=== PATIENT | female | born 1980 | race Caucasian/White ===

== ENCOUNTER 2025-04-01 08:18 | Emergency (ER) | payer BC, MEDICAID, SELFPAY ==
[2025-04-01 08:23] VITALS: BP 150/78; PULSE 85; RESP 17; TEMP 36.4; O2SAT 98; BMI 32.1
--- OUTSIDE RECORDS SUMMARY | 2025-04-01 08:25 | XMS_ITS | Encounter Summary ---
Author Organization [facility] Address [address] [place] [address] Care Team Providers Care Steeping Press Tender Name Role Phone Kary Lawson MD Primary Care Provider [phone] Encounter Details Date Type Department Care Team (Late st Contact Info) Description 10/05/[address] [facility] Support Serv. ([facility]t Cardiology-[facility]) [address] 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
--- OUTSIDE RECORDS SUMMARY | 2025-04-01 08:26 | XMS_ITS | Encounter Summary ---
Author Organization [facility] Address 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
--- OUTSIDE RECORDS SUMMARY | 2025-04-01 08:26 | XMS_ITS | Clinical Summary ---
Author Organization [facility] Address [address] Benitez: Epic Prelude ADT [place] [address] Care Team Providers Care Nca Certified Concierge Name Role Phone Unavailable Primary Care Provider Unavailabl e Allergies Active Allergy Reactions Criticality Noted Date Comments Cephalexin Rash Low 10/18/2015 Nitrofurantoin Monohyd/M-Cryst Rash Low 10/17 Medications No known medications Active Problems Problem Noted Date Diagnosed Date Lesion of right upper eyelid 01/26/2024 Social History Tobacco Use Types Packs/Day Years Used Date Smoking Tobacco: Former Cigarettes Smokeless Tobacco: Never Tobacco Cessation:Counseling Given: Not Answered Alcohol Use Standard Drinks/Week Comments No 0 (1 standard drink = 0.6 oz pur e alcohol) Feeling Safe Answer Date Recorded Are you in a relationship wi th someone who hurts you emotionally and/or physically? 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 Gender Identity Not on file Sexual Orientation Not on file Last Filed Vital Signs Vital Sign Reading Time Taken Comments Blood Pressure 123/105 01/26/2024 2:15 PM CDT Pulse 71 01/26/2024 2:00 PM CDT Temperature 36.7 C (98 F) 01/26/2024 2:15 PM CDT Respiratory Rate 20 01/26/2024 2:00 PM CDT Oxygen Saturation 99% 01/26/2024 2:15 PM CDT Inhaled Oxygen Concentration - - Weight 66.8 kg (147 lb 3.2 oz) 01/26/2024 12:16 PM CDT Height 154.9 cm (5' 1 ) 01/26/2024 12:16 PM CDT Body Mass Index 27.81 01/26/2024 12:16 PM CDT Plan of Treatment Health Maintenance Due Date Last Done Comments DTAP/TDAP/TD VACCINES (1 - Tdap) 2000 HEPATITIS B VACCINES (1 of 3 - 19+ 3-dose series) 05/07 HPV/Cotest (21-29) 2002 HPV VACCINES (1 - 3-dose SCDM series) 2008 CERVICAL CANCER SCREENING 2011 HPV/Cotest (30-65) 2011 PAP SMEAR 2011 BREAST CANCER SCREENING 2021 INFLUENZA VACCINE (#1) [address] [place] [address] [place] [address]
--- OUTSIDE RECORDS SUMMARY | 2025-04-01 08:26 | XMS_ITS | Encounter Summary ---
Author Organization [facility] Address [address] [place] [address] Care Team Providers Care Drawing Checker Name Role Phone Kary Lawson MD Primary Care Provider [phone] Encounter Details Date Type Department Care Team (Latest Contact Info) Description 02/10/2003 Outpatient Historical [facility] PATIENT IN A BED Rylie Knight MD [address] [facility] [address] [place] [address] Vilma Lyn MD [address] [place] [address] [address] [place] [address] THRT NATALIE LABOR-ANTEPART (Primary Dx) Social History Tobacco Use Types Packs/Day Years Used Date Smoking Tobacco: Never Assessed Comments Unknown Sex and Gender Information Value Date Recorded Sex Assigned at Not on file 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
--- OUTSIDE RECORDS SUMMARY | 2025-04-01 08:26 | XMS_ITS | Patient Health Record ---
Author Organization [facility] Address [address] [place] [address] Support Name Relationship Address Phone MILANLILLIAM Emergency Contact [address] [place], [place] [phone] ZONIA HUGGINS Guarantor Unknown [phone] Reason For Referral No Information Plan Of Treatment No Information Insurance Providers Payer Name Payer Address Payer Phone Subscriber Number Group Number Insured Name Patient Relationship to Insured Coverage Start Date Coverage End Date [facility] [address] [place] [address] [phone] [id number] ZONIA ZAZUETA Self - patient is the insured 2015 6
--- OUTSIDE RECORDS SUMMARY | 2025-04-01 08:26 | XMS_ITS | Encounter Summary ---
Author Organization [facility] Address 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 Gender Identity Not on file Sexual Orientation Not on file documented as of this encounter Plan of Treatment Not on file documented as of this encounter Procedures Procedure Name Priority Date/Time Associated Diagnosis Comments TROPONIN (W/REFLEX CKMB/CK) Routine 10/05/2004 10:35 PM CDT CBC WITH DIFFERENTIAL Routine 10/05/2004 10:35 PM CDT CBC WITH DIFFERENTIAL Routine 10/05/2004 10:35 PM CDT COMPREHENSIVE METABOLIC PANEL Routine 10/05/2004 10:35 PM CDT documented in this encounter Results * (ABNORMAL) CBC WITH DIFFERENTIAL (10/05/2004 10:35 PM CDT) NEUTROPHIL ABSOLUTE 6.36 1.90 - 7.00 K/uL INTERFACE SYSTEM LYMPHOCYTE ABSOLUTE 2.65 0.70 - 4.50 K/uL INTERFACE SYSTEM MONOCYTE ABSOLUTE 1.06 0.10 - 1.30 K/uL INTERFACE SYSTEM EOSINOPHIL ABSOLUTE 0.32 0.00 - 0.70 K/uL INTERFACE SYSTEM BASOPHILS ABSOLUTE 0.11 0.00 - 0.20 K/uL INTERFACE SYSTEM NEUTROPHILS, SEG 59 45 - 70 % INT ERFACE SYSTEM BANDS 1 0 - 5 % INTERFACE SYSTEM LYMPHOCYTES 24 16 - 45 % INTERFAC E SYSTEM MONOCYTES 10 3 - 13 % INTERFACE SYSTEM EOSINOPHILS 3 0 - 7 % INTERFAC E SYSTEM BASOPHILS 1 0 - 2 % INTERFACE SYSTEM MYELOCYTES 1(H) <=0 % INTERFACE SYSTEM ATYPICAL LYMPHOCYTE 1 0 - 5 % INTERFACE SYSTEM PLATELET EST. Normal Normal INTERF ALAINA SYSTEM RBC MORPHOLOGY Normal Normal INTER FACE SYSTEM 10/05/2004 10:3 5 PM CDT Kevin Avitia MD HEMATOLOGY ORDERABLES Final Result Performing Organization Address [facility] de Phone Number INTERFACE SYSTEM Refer to clinic/hospital department * (ABNORMAL) CBC WITH DIFFERENTIAL (10/05/2004 10:35 PM CDT) WBC 10.6(H) 4.0 - 9.8 K/uL INTERFACE SYSTEM RBC 4.04 3.90 - 4.90 M/uL INTERFACE SYSTEM HEMOGLOBIN 12.4 11.8 - 14.8 g/dL INTERFACE SYSTEM HEMATOCRIT 35.3(L) 35.5 - 44.0 % INTERFACE SYSTEM MCV 87.4 82.0 - 99.0 fL INTERFACE SYSTEM MCH 30.7 27.2 - 32.6 pg INTERFACE SYSTEM MCHC 35.1 31.5 - 35.5 % INTERFACE SYSTEM RDW 12.4 11.5 - 14.5 % INTERFACE SYSTEM RDW-STDEV 39.7 37.1 - 48.7 fL INTERFACE SYSTEM PLATELETS 252 140 - 350 K/uL INTERFACE SYSTEM MPV 10.7 9.3 - 12.4 fL INTERFACE SYSTEM 10/05/2004 10:3 5 PM CDT Kevin Avitia MD HEMATOLOGY ORDERABLES Final Result Performing Organization Address City/[facility] Co de Phone Number INTERFACE SYSTEM Refer to clinic/hospital department * TROPONIN (W/REFLEX CKMB/CK) (10/05/2004 10:35 PM CDT) TROPONIN T <0.01 <=0.03 ng/mL INTERFACE SYSTEM TROPONIN T INTERP Negative INTERFACE SYSTEM 10/05/2004 10:3 5 PM CDT Kevin Avitia MD CHEMISTRY ORDERABLES F inal Result Performing Organization Address City/[facility] Co de Phone Number INTERFACE SYSTEM Refer to clinic/hospital department * (ABNORMAL) COMPREHENSIVE METABOLIC PANEL (10/05/2004 10:35 PM CDT) GLUCOSE 89 65 - 109 mg/dL INTERFACE SYSTEM CREATININE 0.6 0.4 - 1.2 mg/dL INTERFACE SYSTEM CALCIUM 8.8 8.6 - 10.2 mg/dL INTERFACE SYSTEM AST 18 12 - 32 U/L INTERFACE SYSTEM ALKALINE PHOSPHATASE 94 35 - 104 U/L INTERFACE SYSTEM BUN 14 6 - 20 mg/dL INTERFACE SYSTEM BILIRUBIN TOTAL 0.2 0.2 - 1.0 mg/dL INTERFACE SYSTEM ALBUMIN 3.7 3.4 - 4.8 g/dL INTERFACE SYSTEM TOTAL PROTEIN 6.7 6.3 - 8.6 g/dL INTERFACE SYSTEM ALT 12 0 - 31 U/L INTERFACE SYSTEM SODIUM 141 135 - 145 mmol/L INTERFACE SYSTEM POTASSIUM 3.9 3.5 - 4.9 mmol/L INTERFACE SYSTEM CHLORIDE 109(H) 96 - 108 mmol/L INTERFACE SYSTEM CO2 24 22 - 30 mmol/L INTERFACE SYSTEM 10/05/2004 10:3 5 PM CDT Kevin Avitia MD CHEMISTRY ORDERABLES F inal Result Performing Organization Address City/[facility] Co de Phone Number INTERFACE SYSTEM Refer to clinic/hospital department documented in this encounter Visit Diagnoses Diagnosis Other chest pain- Primary documented in this encounter Care Teams Mineral Resources Inspector Relationship Specialty Start Date End Date Kary Lawson MD [address] [place] [address] PCP - General 08/31/04 10/13/18 documented as of this encounter
--- OUTSIDE RECORDS SUMMARY | 2025-04-01 08:26 | XMS_ITS | Encounter Summary ---
Author Organization [facility] Address [address] [place] [address] Care Team Providers Care Cuff Stitcher Name Role Phone Kary Lawson MD Primary Care Provider [phone] Encounter Details Date Type Department Care Team (Late st Contact Info) Description 08/31/2004 Emergency [facility] Urvashi Sebastian, DO [address] [facility] [address] [place] [phone] Er, Authorized P NO ADDRESS ON FILE URIN TRACT INFECTION NOS (Primary Dx) Social History Tobacco Use Types Packs/Day Years Used Date Smoking Tobacco: Never Assessed Comments Unknown Sex and Gender Information Value Date Recorded Sex Assigned at Not on file 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 Gender Identity Not on file Sexual Orientation Not on file documented as of this encounter Plan of Treatment Not on file documented as of this encounter Procedures Procedure Name Priority Date/Time Associated Diagnosis Comments PT AND APTT Routine 08/31/2004 11:43 PM CDT CBC WITH DIFFERENTIAL Routine 08/31/2004 11:43 PM CDT CBC WITH DIFFERENTIAL Routine 08/31/2004 11:43 PM CDT URINALYSIS WITH MICROSCOPIC Routine 08/31/2004 11:43 PM CDT D-DIMER Routine 08/31/2004 11:43 PM CDT HCG QUANTITATIVE, BLOOD Routine 08/31/2004 11:43 PM CDT LIPASE Routine 08/31/2004 11:43 PM CDT AMYLASE Routine 08/31/2004 11:43 PM CDT COMPREHENSIVE METABOLIC PANEL Routine 08/31/2004 11:43 PM CDT documented in this encounter Results * (ABNORMAL) URINALYSIS WITH MICROSCOPIC (08/31/2004 11:43 PM CDT) COLOR UA Yellow INTERFACE SYSTEM CLARITY UA Clear Clear INTERFACE SYSTEM SPECIFIC GRAVITY UA 1.005 1.001 - 1.035 INTERFACE SYSTEM PH UA 6.5 5.0 - 8.0 INTERFACE SYSTEM LEUKOCYTE ESTERASE UA 2+(A) Negative INTERFACE SYSTEM NITRITE UA Negative Negative INTERFACE SYSTEM PROTEIN UA Negative Negative INTERFACE SYSTEM GLUCOSE UA Negative Negative INTERFACE SYSTEM KETONES UA Negative Negative INTERFACE SYSTEM UROBILINOGEN UA <1 <1 EU INTE RFACE SYSTEM BILIRUBIN UA Negative Negative INTERFA CE SYSTEM BLOOD UA Negative Negative INTERFACE SYSTEM WBC UA 14(H) 0 - 5 /HPF INTERFACE SYSTEM RBC UA <1 0 - 4 /HPF INTERFACE SYSTEM BACTERIA UA 1+(A) None Seen /HPF INTERFACE SYSTEM EPITHELIAL CELLS, URINE 0-2 /HPF INTERFACE SYSTEM 08/31/2004 11:4 3 PM CDT us Sebastian Landin DO URINE ORDERABLES Final Resul t INTERFACE SYSTEM Refer to clinic/hospital department * HCG QUANTITATIVE, BLOOD (08/31/2004 11:43 PM CDT) HCG QUANT, BLOOD <5 0 - 5 mIU/mL INTERFACE SYSTEM Comment: Result of 5 - 25 mIU/mL is indeterminant for , repeat of test recommemded in 48 hours. Reference Range: Gestational Age: 3 Weeks 5.8 - 71.2 mIU/mL 4 Weeks 9.5 - 750 mIU/mL 5 Weeks 217 - 7138 mIU/mL 6 Weeks 158 - 31,795 mIU/mL 7 Weeks 3697 - 163,563 mIU/mL 8 Weeks 32,065 - 149,571 mIU/mL 9 Weeks 63,803 - 151,410 mIU/mL 10 Weeks 46,509 - 186,977 mIU/mL 12 Weeks 27,832 - 210,612 mIU/mL 14 Weeks 13,950 - 62,530 mIU/mL 15 Weeks 12,039 - 70,971 mIU/mL 16 Weeks 9040 - 56,451 mIU/mL 17 Weeks 8175 - 55,868 mIU/mL 18 Weeks 8099 - 58,176 mIU/mL Heterophile antibodies and other interfering substances in the serum of some patients may cause a false-positive result in this assay. Before making a diagnosis of malignancy or ectopic ,the result of thi s test should be confirmed with a urine HCG test and correlated with other clinical evidence. Results called to laurent at 09/01/2004 12:39 AM and read back verified. 08/31/2004 11:4 3 PM CDT Sebastian Fixit [employer] DO CHEMISTRY ORDERABLES Final R esult Performing Organization Address City/State/[facility] Co de Phone Number INTERFACE SYSTEM Refer to clinic/hospital department * (ABNORMAL) CBC WITH DIFFERENTIAL (08/31/2004 11:43 PM CDT) NEUTROPHILS 58 45 - 70 % INTERFAC E SYSTEM LYMPHOCYTES 29 16 - 45 % INTERFAC E SYSTEM MONOCYTES 9 3 - 13 % INTERFACE SYSTEM EOSINOPHILS 4 0 - 7 % INTERFAC E SYSTEM BASOPHILS 1 0 - 2 % INTERFACE SYSTEM NEUTROPHIL ABSOLUTE 8.21(H) 1.90 - 7.00 K/uL INTERFACE SYSTEM LYMPHOCYTE ABSOLUTE 4.18 0.70 - 4.50 K/uL INTERFACE SYSTEM MONOCYTE ABSOLUTE 1.29 0.10 - 1.30 K/uL INTERFACE SYSTEM EOSINOPHIL ABSOLUTE 0.52 0.00 - 0.70 K/uL INTERFACE SYSTEM BASOPHILS ABSOLUTE 0.10 0.00 - 0.20 K/uL INTERFACE SYSTEM 08/31/2004 11:4 3 PM CDT Sebastian [facility] DO HEMATOLOGY ORDERABLES Final Result Performing Organization Address City/State/[facility] Co de Phone Number INTERFACE SYSTEM Refer to clinic/hospital department * (ABNORMAL) CBC WITH DIFFERENTIAL (08/31/2004 11:43 PM CDT) WBC 14.3(H) 4.0 - 9.8 K/uL INTERFACE SYSTEM RBC 4.60 3.90 - 4.90 M/uL INTERFACE SYSTEM HEMOGLOBIN 14.1 11.8 - 14.8 g/dL INTERFACE SYSTEM HEMATOCRIT 40.3 35.5 - 44.0 % INTERFACE SYSTEM MCV 87.6 82.0 - 99.0 fL INTERFACE SYSTEM MCH 30.7 27.2 - 32.6 pg INTERFACE SYSTEM MCHC 35.0 31.5 - 35.5 % INTERFACE SYSTEM RDW 12.4 11.5 - 14.5 % INTERFACE SYSTEM RDW-STDEV 39.8 37.1 - 48.7 fL INTERFACE SYSTEM PLATELETS 266 140 - 350 K/uL INTERFACE SYSTEM MPV 11.1 9.3 - 12.4 fL INTERFACE SYSTEM 08/31/2004 11:4 3 PM CDT Sebastian Landin DO HEMATOLOGY ORDERABLES Final Result Performing Organization Address City/[facility] Co de Phone Number INTERFACE SYSTEM Refer to clinic/hospital department * LIPASE (08/31/2004 11:43 PM CDT) LIPASE 23 13 - 60 U/L INTERFAC E SYSTEM 08/31/2004 11:4 3 PM CDT Sebastian Landin DO CHEMISTRY ORDERABLES Final R esult Performing Organization Address City/[facility]/ZIP Co de Phone Number INTERFACE SYSTEM Refer to clinic/hospital department * AMYLASE (08/31/2004 11:43 PM CDT) AMYLASE 33 28 - 100 U/L INTERFACE SYSTEM 08/31/2004 11:4 3 PM CDT Sebastian Landin DO CHEMISTRY ORDERABLES Final R esult Performing Organization Address City/[facility]/ZIP Co de Phone Number INTERFACE SYSTEM Refer to clinic/hospital department * PT AND APTT (08/31/2004 11:43 PM CDT) PROTIME 14.1 12.9 - 15.7 Seconds INTERFACE SYSTEM INR 1.0 0.9 - 1.1 INTERFACE SYSTEM Comment: INR Therapeutic Range: Adult: 2.0 - 3.0 for pulmonary embolism or prophylaxis against venous thrombosis or systemic embolization. 2.0 - 3.0 for patients with tissue heart valves. 2.5 - 3.5 for patients with mechanical heart valves or post DE. Pediatric (12 years and under): 1.5 - 3.0 Although the target range in children is not well established , INR values of 1.5 - 3.0 are recommended for most patients. Higher values have been used in children with prosthetic cardiac valves and hereditary clotting disorders. (<3 days) therapeutic ranges have not been established. Revised 08/28/04 PTT 32.9 25.0 - 35.0 Seconds INTERFACE SYSTEM Comment: PTT Therapeutic Range: Heparin Level PTT (seconds) <0.10 units/mL <45 0.10 - 0.30 units/mL 45 - 65 0.30 - 0.70 units/mL* 65 - 106* 0.70 - 1.00 units/mL 106 - 137 *corresponds to therapeutic range for unfractionated heparin 08/31/2004 11:4 3 PM CDT Sebastian Landin DO HEMATOLOGY ORDERABLES Final Result INTERFACE SYSTEM Refer to clinic/hospital department * D-DIMER (08/31/2004 11:43 PM CDT) D-DIMER QUANT 0.33 <=0.42 ug/mL FEU INTERFACE SYSTEM Comment: DVT Screen reference range <0.45 ug/mL FEU D. Dimer Interpretation: The reference range is not clearly established in uncomplicated pregnanc ies. Values above the upper limit of the reference range are common from the 31st to 40th week of . High negative predictive values for DVT have been reported with the current methodology, as part of a comprehensive medical examination, including risk stratification. 08/31/2004 11:4 3 PM CDT Sebastianmalu Landin DO HEMATOLOGY ORDERABLES Final Result Performing Organization Address City/[facility] Co de Phone Number INTERFACE SYSTEM Refer to clinic/hospital department * COMPREHENSIVE METABOLIC PANEL (08/31/2004 11:43 PM CDT) GLUCOSE 99 65 - 109 mg/dL INTERFACE SYSTEM CREATININE 0.7 0.4 - 1.2 mg/dL INTERFACE SYSTEM CALCIUM 8.9 8.6 - 10.2 mg/dL INTERFACE SYSTEM AST 15 12 - 32 U/L INTERFACE SYSTEM ALKALINE PHOSPHATASE 94 35 - 104 U/L INTERFACE SYSTEM BUN 15 6 - 20 mg/dL INTERFACE SYSTEM BILIRUBIN TOTAL 0.2 0.2 - 1.0 mg/dL INTERFACE SYSTEM ALBUMIN 4.2 3.4 - 4.8 g/dL INTERFACE SYSTEM TOTAL PROTEIN 7.3 6.3 - 8.6 g/dL INTERFACE SYSTEM ALT 10 0 - 31 U/L INTERFACE SYSTEM SODIUM 138 135 - 145 mmol/L INTERFACE SYSTEM POTASSIUM 3.8 3.5 - 4.9 mmol/L INTERFACE SYSTEM CHLORIDE 106 96 - 108 mmol/L INTERFACE SYSTEM CO2 22 22 - 30 mmol/L INTERFACE SYSTEM 08/31/2004 11:4 3 PM CDT Sebastian Landin DO CHEMISTRY ORDERABLES Final R esult Performing Organization Address [facility] de Phone Number INTERFACE SYSTEM Refer to clinic/hospital department documented in this encounter Visit Diagnoses Diagnosis Urinary tract infection, site not specified- Primary documented in this encounter Care Teams Cuff Stitcher Relationship Specialty Start Date End Date Kary Lawson MD [address] [facility] [place] [address] PCP - General 08/31/04 10/13/18 documented as of this encounter
--- OUTSIDE RECORDS SUMMARY | 2025-04-01 08:26 | XMS_ITS | Encounter Summary ---
Author Organization [facility] Address 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
--- NOTE | 2025-04-01 08:29 | ED_ITS ---
HPI - General Adult General: Chief complaint: Skin/Abscess/Foreign Body Stated complaint: Burn on Private Area (from shaving cream) Time Seen by Provider: 04/01/25 08:25 Source: patient Mode of arrival: ambulatory Limitations: no limitations History of Present Illness: 44-year-old female states that she had u sed a cream to shave her vagina overnight. States she is had allergic reactions to shaving cream in the past states that since then she has been having a burning and redness to where she had shaved. She denies any fever states it is pruritic Related Data Allergies Allergy/AdvReac Type Severity Reaction Status Date / Time cephalexin (From Keflex) Allergy ALGY-Hives Verified 04/01/25 08:28 nitrofurantoin (From Allergy ALGY-Hives Verified 04/01/25 08:28 Macrobid) PFSH ED PFSH: Social History Smoking and tobacco/nicotine status: former use of tobacco/nicotine Physical Exam Const: COMMON NORMALS: no acute distress, patient oriented x3 and healthy appearing HENMT: COMMON NORMALS: normocephalic and atraumatic HEAD & SCALP: normocephalic and atraumatic Neck/C-Spine: COMMON NORMALS: full ROM and supple Chest: COMMONS NORMALS: normal inspection of the chest Resp: COMMON NORMALS: normal respiratory effort Cardio: COMMON NORMALS: regular rate RATE: regular rate Extremity: COMMON NORMALS: normal to inspection and full ROM Neuro: COMMON NORMALS: patient oriented x3, moves all extremities and no focal motor deficits Psych: COMMON NORMALS: mental status grossly normal, Normal thought process present and cooperative THOUGHT PROCESS: Normal thought process present Skin: COMMON NORMALS: no wounds NARRATIVE SKIN EXAM: Contact dermatitis noticed to groin no signs of cellulitis or folliculitis MDM - General Adult Medical Decision Making Patient presents here with contact dermatitis from shaving did give her Benadryl Decadron here she is use [id number] creams no signs of cellulitis patient stable for discharge follow-up PCP return if worsening. No radiology studies performed this visit Discharge Plan Discharge Patient Disposition: Home Clinical Impression: Contact dermatitis Qualifiers: Contact dermatitis type: allergic Condition: Stable Discharge Orders: Discharge ED (Routine); Ordered 04/01/25 Ordered By: Lana Boston Discharge Diet: Advance as tolerated Discharge Activity: Resume usual activity Patient Instructions: Contact Dermatitis (ED) Print Language: Cape Verdean Coding Level of Care Code ED Labor Employment Associate for Carmencita Dunlap
== END 2025-04-01 08:40 | disposition home or self-care (01) ==
PROVIDERS: Emergency Provider Emergency Medicine
DX: T49.8X1A Poisoning by other topical agents, accidental (unintentional), initial encounter (principal); L23.2 Allergic contact dermatitis due to cosmetics; Z87.891 Personal history of nicotine dependence; X58.XXXA Exposure to other specified factors, initial encounter
CPT/HCPCS: 99283; J1100; Q0163